=== PATIENT | female | born 1990 | race Caucasian/White ===

== ENCOUNTER 2020-06-07 16:10 | Outpatient (CLI) | payer OTHER ==
[~2020-06-07] VITALS: Ht 152.4 cm; Wt 90.7 kg
[~2020-06-07 16:10] MED LIST: AFRIN15 M1; AMOXICILLIN500 MG PO; COLACE 100MG C100 MG PO; CYCLOBENZAPRINE5 MG PO; MOBIC15 MG PO; ZYRTEC10 M2 PO
[2020-06-07 23:33] LABS: HEMOGLOBIN 9.6 gm/dl (12.3-15.3); RED BLOOD COUNT 3.36 M/UL (4.00-5.10); WHITE BLOOD COUNT 16.8 K/UL (4.5-11.0)
[2020-06-07 23:39] LABS: BUN/CREATININE RATIO 13 (0-10)
== END 2020-06-08 11:59 | disposition home or self-care (01) ==
LOC: GENOP 16:10
PROVIDERS: Obstetrics & Gynecology
DX: O26.893 Other specified pregnancy related conditions, third trimester (principal); R10.9 Unspecified abdominal pain; Z3A.30 30 weeks gestation of pregnancy
CPT/HCPCS: 36415; 80053; 80307; 81001; 83518; 83735; 84484; 85025; 93005; 96361; 96365; 96366; 96368; 96372; 96374; 96375; 96376; J0595; J2270; J2405; J3105; J3475; J7120

== ENCOUNTER 2020-06-13 11:16 | Outpatient (CLI) | payer OTHER | END 2020-06-13 14:47 | disposition home or self-care (01) | LOC: GENOP 11:16 | DX: O62.9 Abnormality of forces of labor, unspecified (principal); Z3A.32 32 weeks gestation of pregnancy | CPT/HCPCS: 81001; G0463 ==

== ENCOUNTER 2020-07-31 00:38 | Inpatient (IN) | payer OTHER ==
[2020-07-31 01:53] LABS: HEMOGLOBIN 10.8 gm/dl (12.3-15.3); RED BLOOD COUNT 4.25 M/UL (4.00-5.10); WHITE BLOOD COUNT 18.6 K/UL (4.5-11.0)
[2020-07-31] MEDS ORDERED: IBUPROFEN600 MG PO (07:01)
[2020-08-01 06:26] LABS: HEMOGLOBIN 9.6 gm/dl (12.3-15.3)
== END 2020-08-01 17:24 | disposition home or self-care (01) | DRG 807 ==
LOC: GENOP 00:38 → OB 01:38
PROVIDERS: ADMIT Obstetrics & Gynecology
PROC: 10E0XZZ Delivery of Products of Conception, External Approach (ICD-10-PCS; principal; 2020-07-31)
PROC: 0HQ9XZZ Repair Perineum Skin, External Approach (ICD-10-PCS; 2020-07-31)
PROC: 4A1HXCZ Monitoring of Products of Conception, Cardiac Rate, External Approach (ICD-10-PCS; 2020-07-31)
DX: O70.0 First degree perineal laceration during delivery (principal); Z37.0 Single live birth; Z3A.38 38 weeks gestation of pregnancy; Z20.822 Contact with and (suspected) exposure to COVID-19
CPT/HCPCS: 36415; 51702; 82800; 83518; 85014; 85018; 85025; 87635; J0595; J2405; J2590; J3010; J3430

== ENCOUNTER → 2021-07-09 | Outpatient (CLI) | payer OTHER ==
[~2021-07-09] MED LIST changes: +IBUPROFEN600 MG PO
== END ==
LOC: EXRD 14:42
DX: E04.9 Nontoxic goiter, unspecified (principal); E04.1 Nontoxic single thyroid nodule
CPT/HCPCS: 76536